=== PATIENT | female | born 1955 ===

== ENCOUNTER 2017-07-09 10:02 | Emergency (ER) | payer BC, OTHER ==
[2017-07-09 10:34] VITALS: BP 126/64
--- NOTE | 2017-07-09 11:07 | UC ---
Lower Extremity/Ankle HPI - HPI Summary HPI Summary: Pt presents with right midfoot pain that began yesterday. She tells me that 2 days ago she was at an expo and did a lot of walking around. Denies specific injury. She thinks her foot has been a little swollen as well. Has not been taking anything for her pain. She is able to bear weight and ambulate, but is using a cane for extra support. Denies numbness, tingling, or hx of injury/ issue with foot. - History of Current Complaint Chief Complaint: UCLowerExtremity Stated Complaint: FOOT INJURY Time Seen by Provider: 07/09/17 11:07 Hx Obtained From: Patient Onset/Duration: Sudden Onset Severity Initially: Moderate Severity Currently: Moderate Pain Intensity: 8 Pain Scale Used: 0-10 Numeric Aggravating Factor(s): Standing, Ambulation Able to Bear Weight: Yes - Allergies/Home Medications Allergies/Adverse Reactions: Allergies Allergy/AdvReac Type Severity Reaction Status Date / Time valacyclovir [From Valtrex] Allergy Swelling Verified 07/09/17 10:34 Of Face,Lips,& Throat Home Medications: Home Medications Trajeo SQ 07/09/17 [History] PMH/Surg Hx/FS Hx/Imm Hx Endocrine History: Diabetes, Dyslipidemia - Surgical History Surgical History: Yes Surgery Procedure, Year, and Place: tonsillectomy, Csection - Family History Known Family History: Positive: Cardiac Disease, Hypertension - Social History Occupation: Employed Full-time Lives: With Family Alcohol Use: Occasionally Substance Use Type: None Smoking Status (MU): Former Smoker Amount Used/How Often: quit in 2000 Review of Systems Constitutional: Negative Skin: Negative Respiratory: Negative Cardiovascular: Negative Gastrointestinal: Negative Neurovascular: Negative Musculoskeletal: Other: - Right foot pain Neurological: Negative Psychological: Negative All Other Systems Reviewed And Are Negative: Yes Physical Exam - Summary Physical Exam Summary: GENERAL: NAD. WDWN. No pain distress. SKIN: No rashes, sores, ulcers, masses, lesions. NECK: Supple. Nontender. No lymphadenopathy. CHEST: CTAB. No r/r/w. No accessory muscle use. Breathing comfortably and in no distress. CV: RRR. Without m/r/g. Pulses intact PT and DP. Brisk cap refill. MSK: TTP over 1st right MT. Mild edema. FROM right foot and all toes. No obvious bony deformities. No erythema or ecchymosis. NEURO: Alert. Sensations intact and symmetric B/L LEs PSYCH: Age appropriate behavior. Triage Information Reviewed: Yes Vital Signs: Initial Vital Signs Temp 98.0 F 07/09/17 10:30 Pulse 80 07/09/17 10:30 Resp 16 07/09/17 10:30 BP 126/64 07/09/17 10:30 Pulse Ox 96 07/09/17 10:30 Lower Extremity Course/Dx - Course Course Of Treatment: XR: IMPRESSION: NO ACUTE BONY FINDINGS. Suspect overuse injury. PADMA wrap and post op shoe for comfort. Advised ice and tylenol for pain. - Differential Dx/Diagnosis Provider Diagnoses: Right foot pain Discharge - Discharge Plan Condition: Stable Disposition: HOME Patient Education Materials: Metatarsalgia (DC) Forms: *Work Release Referrals: Ishmael Oliva MD [Primary Care Provider] - Additional Instructions: If you develop a fever, shortness of breath, chest pain, new or worsening symptoms - please call your PCP or go to the ED. 1) Rest, Ice, and elevate your foot as much as possible over the next 24-48hours 2) May take tylenol every 6-8 hours as needed for pain 3) Use the PADMA wrap and post-op shoe as needed for comfort. If your pain persist , please schedule a follow up with your PCP.
--- NOTE | 2017-07-09 11:42 | RAD ---
INDICATION: Foot pain dorsum of foot COMPARISON: None TECHNIQUE: AP, lateral, and oblique views were obtained. FINDINGS: There are no acute bony findings. There may be an old fracture the proximal fossa the second toe. 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 There is mild spurring of the dorsum of the midfoot. There are heel spurs. There is soft tissue swelling of the dorsum of the forefoot. IMPRESSION: NO ACUTE BONY FINDINGS.
== END 2017-07-09 12:02 | disposition home or self-care (01) ==
LOC: UCEAST 10:02
DX: M79.671 Pain in right foot (principal); Z87.891 Personal history of nicotine dependence; E11.9 Type 2 diabetes mellitus without complications; E78.5 Hyperlipidemia, unspecified
CPT/HCPCS: 99213; G0463